=== PATIENT | female | born 1955 | race Caucasian/White ===

== ENCOUNTER 2021-07-29 06:43 | Emergency (ER) | payer OTHER ==
[2021-07-29] MEDS ORDERED: Morphine 2 MG/ML SYRINGE IVPUSH ONE ×2 (06:45→07:15)
[2021-07-29] MEDS ORDERED: Morphine 2 MG/ML SYRINGE ONE ×2 (07:31→07:41)
[2021-07-29] MEDS ORDERED: GI Cocktail Oral Solution 30 ML PO ONE (07:45)
[2021-07-29] MEDS ORDERED: Pantoprazole 40 MG Vial IVPUSH ONE (09:31)
== END 2021-07-29 12:12 | disposition home or self-care (01) ==
LOC: LB.ED 06:43
DX: K29.00 Acute gastritis without bleeding (principal); I48.91 Unspecified atrial fibrillation; Z88.0 Allergy status to penicillin; Z88.1 Allergy status to other antibiotic agents; Z88.2 Allergy status to sulfonamides; Z79.01 Long term (current) use of anticoagulants; Z20.822 Contact with and (suspected) exposure to COVID-19
CPT/HCPCS: 36415; 71045; 80053; 84484; 85025; 85610; 87635; 93005; 96374; 96375; 99285; A9270; C9113; J2270; U0002